=== PATIENT | female | born 1965 | race Caucasian/White ===

== ENCOUNTER 2024-04-15 13:02 | Outpatient (CLI) | payer BC, SELFPAY ==
--- NOTE | 2024-04-15 13:00 | MR_ITS ---
[address] [address] Phone:?[phone] Fax:?[phone] Referring Physician Information: Keenan Nash M.D. [address] [id number] Phone:?[phone] Fax:?[phone] Patient:?Ping Peralta Faheem.Julius.B:?1965 Sex:?Female Phone:?[phone] [facility] MRN:?[id number] Exam Date:?04/15/2024 EXAM: MRI of the RIGHT SHOULDER, without contrast CLINICAL: Female, 58 years old, with right shoulder pain since injury sustained during a fall while carrying books. INDICATION: Evaluate for rotator cuff tear or strain versus other shoulder internal derangement etiology. PRIOR SURGERY: None reported. PLAIN FILMS: 03/06/2024 radiographic series of the right shoulder. COMPARISONS: No prior MRIs available. TECHNICAL: Using a 1.5T MR scanner and a localizing shoulder surface coil: 3.0 mm?coronal obliques: PD, T2, STIR 3.0 mm?sagittal obliques: PD, T2 3.0 mm?axials: PD, T2 SEDATION: None. CONTRAST: None. IMPRESSION: 1. Broad-based greater than 50% thickness deep surface attenuation of the distal 2 cm of the entire supraspinatus tendon, slightly into the adjacent anterior infraspinatus tendon, with superimposed 10-15 mm AP dimension full-thickness supraspinatus tendinopathy and ill-defined irregular near full-thickness and more focal full-thickness tear of the distal insertional supraspinatus footprint. Minimal tendon retraction and mild muscle atrophy although the latter is relatively similar to other musculature of the shoulder. 2. Mild narrowing of acromiohumeral distance is likely predominantly secondary to slight proximal migration of the humeral head associated with rotator cuff attenuation. Relatively mild inferior degenerative hypertrophy of acromioclavicular joint also contributes some encroachment upon the subacromial space and underlying supraspinatus myotendinous junction 3. No biceps tendon pathology. 4. Expected mild glenohumeral chondromalacia/degenerative change predominantly involving the glenoid. FINDINGS: Glenohumeral joint: Effusion/cyst: Physiologic. Ganglion cyst: None. Articular cartilage: Humeral head: Intact. Glenoid: Expected chondral thinning of the central glenoid without convincing full-thickness defect or subjacent marrow edema Loose bodies: None demonstrable. Inferior glenohumeral ligament/axillary recess: Unremarkable. Labrum: Prominent appearing attenuation, perhaps some irregularity, of the anterior labrum although without convincing well-defined linear tear (axial images 12- 17). Posterior and superior labrum appear unremarkable. Bones: Proximal humerus: Slight cortical irregularity and slight subcortical bone marrow edema and minimal subchondral cyst of the anterior greater tuberosity as well as a separate area of mild to moderate marrow edema of the more posterior greater tuberosity underlie distal insertional rotator cuff tendinopathy/tear detailed below. The proximal humerus is otherwise intact. No humeral Hill-Sachs or reverse Hill-Sachs lesion. Glenoid: Intact. No osseous Bankart lesion. Coracoacromial arch: Acromion morphology: Pronounced type II acromion without defined subacromial spur/enthesophyte with slightly low-lying, although otherwise unremarkable- appearing, coracoacromial ligament contribute slight additional encroachment subacromial space beyond the acromion morphology (sagittal image 9). Os acromiale: None. Acromiohumeral space: Mildly narrowed anteriorly at a minimum of 4 mm associated with the above morphology but likely predominantly secondary to slight proximal migration of the humeral head associated with the rotator cuff tear/attenuation detailed below. Coracohumeral space: Within normal limits. Acromioclavicular joint: Joint: Mild degenerative hypertrophy of the acromioclavicular joint contributes mild encroachment upon the subacromial space where it abuts and mildly encroaches upon the contour of the underlying anterior supraspinatus myotendinous junction (sagittal T2 series 9, images 13-15). Ligaments: Intact coracoclavicular ligaments. Bursae: Subacromial-subdeltoid: Unremarkable. Subcoracoid: Unremarkable. Rotator cuff and muscles/tendons: Supraspinatus: There is broad-based rather marked deep surface attenuation/wear/tear of the distal 2 cm of the entire supraspinatus tendon. A superficial tendon layer remains intact over most of this area although there is superimposed approximately 10 towards 15 mm AP dimension area of abnormal irregular higher grade partial-thickness tearing and more localized full- thickness tear (coronal images 14-9; sagittal T2 series 9, images 10-4). Slight to mild retraction of some of the torn tendon fibers with mild decreased muscle bulk. Infraspinatus: Some tendinosis and mild attenuation extends into adjacent distal anterior margin of the infraspinatus tendon, without convincing full-thickness tear. The more mid to posterior infraspinatus tendon is intact. No tendon or myotendinous junction retraction. No muscle atrophy. Teres minor: Unremarkable. Subscapularis: Unremarkable. Deltoid: Unremarkable. Biceps tendon, long head: Intact without displacement. Axilla: None. [facility] Electronically signed on 04/16/2024 1:18:00 PM by Morales Gerard M.D.
== END 2024-04-15 13:03 | disposition home or self-care (01) ==
PROVIDERS: Visit Provider Orthopaedic Surgery Sports Medicine
DX: M25.511 Pain in right shoulder (principal); S46.011A Strain of muscle(s) and tendon(s) of the rotator cuff of right shoulder, initial encounter; M75.101 Unspecified rotator cuff tear or rupture of right shoulder, not specified as traumatic; M94.211 Chondromalacia, right shoulder
CPT/HCPCS: 73221

== ENCOUNTER 2024-06-01 06:16 | Day surgery (SDC) | payer BC, SELFPAY ==
[2024-06-01] VITALS (14 sets, daily range): BP systolic 103–128; BP diastolic 64–79; PULSE 52–67; RESP 14–16; TEMP 36.1–36.3; O2SAT 93–99; BMI 24.0
--- OUTSIDE RECORDS SUMMARY | 2024-06-01 06:19 | XMS_ITS | Clinical Summary ---
Author Organization [employer] [facility] Address [place], [place] [address] Care Team Providers Care Recreational Vehicle Repairer Name Role Phone River Alvarado MD Unavailable [phone] Kassie Velásquez MD Primary Care Provider [phone] Allergies Active Allergy Reactions Criticality Noted Date Comments Erythromycin Rash 10/01/2006 Tetracycline Rash 10/01/2006 Medications azelaic acid (FINACEA) 15 % topical gel Apply thin layer topically to affected area twice daily. 50 g 0 04/28/20 14 Active metroNIDAZOLE (METROCREAM) 0.75 % creamIndication s:Contact dermatitis and other eczema, due to unspecified cause Apply topically to affected area(s) 2 times daily. 45 g 2 10/02/19 15 Active medication order composerIndicat ions:Vaginal atrophy Estriol 0.5 mg / gm Use 2 gm in the vagina at bedtime twice weekly 30 g 10/13/19 21 Active nystatin-triamc inolone (MYTREX) ointmentIndicat ions:Vulvar irritation Apply topically to affected area(s) two times daily. 30 g 12/27/19 22 Active estradioL (ESTRACE) 0.01% (0.1 mg/g) vaginal creamIndication s:Vaginal itching,Vaginal irritation,Vagi nal atrophy,Genitou rinary symptoms,Postme nopausal atrophic vaginitis The regimen recommended by the grave cleaner is 2 to 4 g of cream intravaginally administered daily for one or two weeks, then gradually reduced to half the initial dose for a similar period. A maintenance dose of 1 g of cream, one to three times per week, may be used. 1 Each 5 01/31/20 24 Active fluconazole (DIFLUCAN) 150 mg tabletIndicatio ns:Vaginal itching TAKE 1 TABLET BY MOUTH. REPEAT IN 3 DAYS IF SYMPTOMS PERSIST 2 Tablet 1 01/31/20 24 Active clobetasol (TEMOVATE) 0.05 % ointmentIndicat ions:Lichen sclerosus Apply half a fingertip spread thinly to affected area nightly for 2 weeks, then 2-3 nights per week 45 g 3 02/18/20 24 Active Active Problems Problem Noted Date Diagnosed Date Lichen sclerosus et atrophicus 05/01/2024 Cataract 05/01/2024 Menopausal symptoms 08/14/2019 Overview (08/14/2019): 08/14/19: St HRT Tinnitus 05/20/2018 Bilateral retinal detachment 08/29/2016 ELBERT II (cervical intraepithelial neoplasia II) 0 07/25/2008 Overview (02/09/2024): 06/2008 [place]: ELBERT I, ECC ELBERT I, cannot exclude ELBERT 2 08/2008 [place]: ELBERT I, margins clear 01/2024 NIL/HPV negative Plan: HPV based testing in 3 years Resolved Problems Problem Noted Date Diagnosed Date Resolved Date Vaginal itching 01/31/2024 04/29/2024 Encounter for screening for malignant neoplasm of breast 01/31/2024 04/29/2024 Screening for cervical cancer 01/31/2024 02/09/2024 Vaginal atrophy 01/31/2024 05/01/2024 Vaginal irritation 01/31/2024 Perioral dermatitis 07/12/2014 04/30/19 25 Positive MIKI (antinuclear antibody) 01/12/2014 04/30/2024 Contact dermatitis and other eczema, due to unspecified cause 07/05/2011 04/29/2024 Mild dysplasia of cervix 10/05/200804/2024 Thyroid function test abnormal 08/19/2008 04/29/2024 Screening for thyroid disorder 06/29/2008 04/30/2024 Backache, unspecified 02/04/20072024 Encounters Date Type Department Care Team Description 05/29/2024 8:45 AM CALTRANS EQUIPMENT OPERATOR Office Visit [facility] [address] [place] [address] Bindu Shen MD Pre-Op Exam 05/29/2024 Travel 05/01/2024 Telephone [facility] [address] [place] [address] Kassie Velásquez MD Form 04/30/2024 3:25 PM CALTRANS EQUIPMENT OPERATOR Office Visit [facility] [address] [place] [address] Kassie Velásquez MD Preoperative Exam (Surgery with Dr Nikos Rosario for cataracts as [facility] on 05/04/24) 04/30/2024 Travel 04/29/2024 Travel 03/04/2024 Telephone [facility] [address] [place] [address] Kyle Gayle MD Appointment Request 03/04/2024 Nurse Triage [facility] [address] [facility] [address] [place] [id number] Ese Garduno MD Chest Injury from Last 3 Months Immunizations Name Administration Dates Next Due COVID-19 VACCINE SPIKEVAX (M ODERNA 50MCG/0.5ML) 12YO+ PFS 02/12/2024 COVID-19 vaccine (Pfizer-Bio NTech 30mcg/0.3mL) PF, MDV 08/15/2020,07/25/2020 INFLUENZA, IIV3 PF (AGE >= 6 MO) 02/12/2024 Influenza Virus, Unspecified 01/13/2020 Influenza, IIV4 02/10/2019,01/20/2018 Influenza, IIV4 (=>6mos) MDV 02/09/2021 Influenza, Injectable, Mdck, Quadrivalent, W/preservative 01/13/2020 Influenza,CCIIV4 PRESERV FREE 03/14/2023, 022 Tdap 12/26/2021,07/05/2011 Zoster (Shingrix-RZV, recombinant) 10/12/2020 Zoster, Unspecified Formulation 06/05/2018(Defer red: Patient Refused) Family History Medical History Relation Name Comments Other Brother 1 retinal tears Good Health Daughter 1 Good Health Daughter 2 Good Health Daughter 3 Arthritis Father RA and OA Diabetes Father type 2 Hyperlipidemia Father Psychiatric illness Maternal Aunt Heart Disease Maternal Grandfather Psychiatric illness Maternal Uncle GI Disease Mother chrones Other Mother glacoma Thyroid Disease Mother Psychiatric illness Paternal Aunt Heart Disease Paternal Grandmother Psychiatric illness Paternal Uncle Arthritis Sister RA and OA Other Sister retinal tears Thyroid Disease Sister Good Health Son Cancer-breast No Family History Cancer-ovarian No Family History Relation Name Status Comments Brother 1 Alive Brother 2 Alive Daughter 1 Alive Daughter 2 Alive Daughter 3 Alive Father Alive Maternal Aunt Maternal Grandfather Maternal Grandmother Maternal Uncle Mother Alive Paternal Aunt Paternal Grandfather Paternal Grandmother Paternal Uncle Sister Alive Son Alive Social History Tobacco Use Types Packs/Day Years Used Date Smoking Tobacco: Former Cigarettes Q uit: 04/29/2010 Smokeless Tobacco: Never Tobacco Cessation:Counseling Given: Yes Comments:occasional smoker Alcohol Use Standard Drinks/Week Comments Yes 5 (1 standard drink = 0.6 oz pur e alcohol) 3-10 drinks per week PHQ-2 Answer Date Recorded PHQ-2 TOTAL SCORE 2 02/18/2024 Social Connections Answer Date Recorded Do you often feel lonely or isolated from those around you? 0 01/31/2024 Financial Resource Strain Answer Date R ecorded Difficulty of Paying Living Expenses 3 01/31/2024 Difficulty of Paying Living Expenses Not on file 01/31/2024 Food Insecurity Answer Date Recorded Do you worry your food will run out before you are able to buy more? 1 01/31/2024 Transportation Needs Answer Date Record ed Does lack of transportation keep you from medica l appointments? 1 01/31/2024 Does lack of transportation keep you from work, meetings or getting things that you need? 1 01/31/2024 Housing Stability Answer Date Recorded What is your housing situation today? 1 01/31/2024 Utilities Answer Date Recorded Do you have trouble paying f or utilities (for example, heat, electricity, water, phone)? 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 on file Not on file Not on file Obstetrics History Para Term AB IAB SAB Ectopic Multiple Livin g Live Births 4 4 4 0 0 0 0 0 0 4 4 Date Outcome GA Total Labor Labor/2nd/3rd Weight Sex Type Anes PTL Luz A1 A5 Name Clin 1989 Term 42w 0d 7h 00m/ 4.28 kg (9 lb 7 oz) M Vag Living 1991 Term 37w 0d 7h 00m/ 3.63 kg (8 lb) F Vag Living 1994 Term 41w 0d 5h 00m/ 4.22 kg (9 lb 5 oz) F Vag Living 1996 Term 41w 0d 7h 00m/ 4.22 kg (9 lb 5 oz) F Vag Living Last Filed Vital Signs Vital Sign Reading Time Taken Comments Blood Pressure 108/62 05/29/2024 9:03 AM CALTRANS EQUIPMENT OPERATOR Pulse 68 05/29/2024 9:03 AM CALTRANS EQUIPMENT OPERATOR Temperature 36.9 C (98.4 F) 03/03/2016 9:12 AM CDT Respiratory Rate 16 04/30/2024 3:56 PM CALTRANS EQUIPMENT OPERATOR Oxygen Saturation 97% 05/29/2024 9:03 AM CALTRANS EQUIPMENT OPERATOR Inhaled Oxygen Concentration - - Weight 67.6 kg (149 lb 1.6 oz) 05/29/2024 9:03 A M CALTRANS EQUIPMENT OPERATOR Height 168.9 cm (5' 6.5) 04/30/2024 3:56 PM CALTRANS EQUIPMENT OPERATOR Body Mass Index 23.7 04/30/2024 3:56 PM CALTRANS EQUIPMENT OPERATOR Plan of Treatment Health Maintenance Due Date Last Done Comments HIV for age 15-65 09/24/1982 Hepatitis C screening for ag e 18-79 09/24/1985 Pneumococcal series for age 50+ (1 of 1 - PCV) 09/24/2017 Lipids for age 45-75 08/13/2018 08/13/2013, 06/08/2009, 05/03/2004 Zoster (shingles) series for age 50+ (2 of 2) 12/07/2020 10/12/2020 Mammogram for age 45-75 08/30/2021 08/31/19 21, 02/10/2019, 10/16/2017, Additional history exists Depression screening for age 12+ 02/17/2025 02/18/2024, 12/26/2021, 10/12/2020, Additional history exists BMI (ht and wt on same day) for age 18+ 04/30/2025 04/30/2024, 02/12/2024, 02/10/2024, Additional history exists Pap test for age 21-65 01/30/2027 , 10/12/2020, 10/12/2020, Additional history exists Colonoscopy through age 75 05/21/202805/21 (Completed outside of [facility]) Tetanus booster 12/27/2031 12/26/2021, 0311/2011, 06/08/2009 (Postponed) Tdap Completed 12/26/2021, 07/05/2011 COVID-19 vaccine series Completed 02/12/20, 03/12/2022, 02/14/2021, Additional history exists Influenza for age 50-64 Completed 02/12/20, 03/14/2023, 03/12/2022, Additional history exists Procedures Procedure Name Priority Date/Time Associated Diagnosis Comments CBC W PLT NO DIFF Routine 05/29/2024 9:1 9 AM CALTRANS EQUIPMENT OPERATOR Pre-op chest exam BASIC METABOLIC PANEL Routine 05/29/2024 9:19 AM CALTRANS EQUIPMENT OPERATOR Pre-op chest exam WILDLIFE PROTECTOR THIN PREP PAP AND HPV DNA - AGE 25 AND OVER ([facility]) Routine 01/31/2024 3:13 PM CDT Screening for cervical cancer XR MAMMO BILAT SCREENING Routine 08/30/2020 5:00 PM CDT Visit for screening mammogram LIPID PANEL W REFLEX MEASURED LDL Routine 08/13/2013 11:25 AM CDT Screening for lipoid disorders from Last 3 Months or Most Recently Relevant to Health Maintenance Results * (ABNORMAL) CBC W PLT NO DIFF (05/29/2024 9:19 AM CALTRANS EQUIPMENT OPERATOR) WHITE BLOOD CELL COUNT 3.4(L) 3.8 - 10.8 Thousand/u L [facility] RED BLOOD CELL COUNT 4.00 3.80 - 5.10 Million/uL [facility] HEMOGLOBIN 12.7 11.7 - 15.5 g/dL [facility] HEMATOCRIT 37.7 35.0 - 45.0 % [facility] MCV 94.3 80.0 - 100.0 fL [facility] MCH 31.8 27.0 - 33.0 pg [facility] MCHC 33.7 32.0 - 36.0 g/dL [facility] Comment: For adults, a slight decrease in the calculated MCHC value (in the range of 30 to 32 g/dL) is most likely not clinically significant; however, it should be interpreted with caution in correlation with other red cell parameters and the patient's clinical condition. RDW 11.7 11.0 - 15.0 % [facility] PLATELET COUNT 227 140 - 400 Thousand/u L [facility] MPV 10.2 7.5 - 12.5 fL [facility] Blood BLOOD SPECIMEN / Unknown 05/29/2024 9:19 AM CALTRANS EQUIPMENT OPERATOR 05/29/2024 9:20 AM CALTRANS EQUIPMENT OPERATOR Narrative [employer] [facility] - 05/30/2024 3:49 AM CALTRANS EQUIPMENT OPERATOR FASTING:YES FASTING: YES us Bindu Shen MD HEMATOLOGY Final Resu lt [employer] [facility] [address] [place] [address], [facility] [address] [place] [address] * (ABNORMAL) BASIC METABOLIC PANEL (05/29/2024 9:19 AM CALTRANS EQUIPMENT OPERATOR) [facility] GLUCOSE 84 65 - 99 mg/dL [facility] Comment: Fasting reference interval UREA NITROGEN (BUN) 8 7 - 25 mg/dL [facility] CREATININE 0.90 0.50 - 1.03 mg/dL [facility] EGFR 75 > OR = 60 mL/min/1. 73m2 [facility] BUN/CREATININE RATIO SEE NOTE: 6 - 22 (calc) [facility] Comment: Not Reported: BUN and Creatinine are within reference range. SODIUM 141 135 - 146 mmol/L [facility] POTASSIUM 4.3 3.5 - 5.3 mmol/L [facility] CHLORIDE 105 98 - 110 mmol/L [facility] CARBON DIOXIDE 31 20 - 32 mmol/L [facility] ELECTROLYTE BALANCE 5(L) 7 - 17 mmol/L (calc) [facility] CALCIUM 9.6 8.6 - 10.4 mg/dL [facility] Blood BLOOD SPECIMEN / Unknown 05/29/2024 9:19 AM CALTRANS EQUIPMENT OPERATOR 05/29/2024 9:20 AM CALTRANS EQUIPMENT OPERATOR Narrative [facility] - 05/30/2024 4:30 AM CALTRANS EQUIPMENT OPERATOR FASTING:YES FASTING: YES Bindu Sehn MD CHEMISTRY Final Resu lt [employer] [facility] [address] [place] [address], [facility] [address] * WILDLIFE PROTECTOR THIN PREP PAP AND HPV DNA - AGE 25 AND OVER ([facility]) (01/31/2024 3:13 PM CDT) CLINICAL INFORMATION [facility] Comment:None given LMP [facility] Comment:UNKNOWN PREV. PAP [facility] Comment:2020 PREV. BX [facility] Comment:YES SOURCE WILDLIFE PROTECTOR [facility] Comment:Cervix STATEMENT OF ADEQUACY [facility] Comment:SATISFACTORY FOR LIBERTAD LUATION INTERPRETATION/RESU LT [facility] Comment: Cytology Results: Negative for intraepithelial lesion or malignancy. Atrophic pattern; predominantly parabasal cells COMMENT [facility] Comment: This Pap test has been evaluated with computer assisted technology. SEMI AUTOMATIC SEWING MACHINE OPERATOR [facility] Comment: ESW, CT (ASCP) CT Screening location: [address] [address] THINPREP TIS PAP ALWAYS MESSAGE [facility] Comment: EXPLANATORY NOTE: The Pap is a screening test for cervical cancer. It is not a diagnostic test and is subject to false negative and false positive results. It is most reliable when a satisfactory sample, regularly obtained, is submitted with relevant clinical findings and history, and when the Pap result is evaluated along with historic and current clinical information. HPV HIGH RISK Not Detected NOT DETECTED [facility] Comment: Not Detected High Risk HPV types (16,18,31,33,35,39,45,51,52, 56,58,59,66,68) were not detected. Other HPV types which cause anogenital lesions may be present. The significance of the other types of HPV in malignant processes has not been established. Methodology: Real Time PCR Other (Other) 01/31/2024 3:1 3 PM CDT 02/01/2024 6:44 AM CDT Narrative [facility] - 02/05/2024 10:53 AM CDT SPLIT 01/31/2024 FROM [id number] Alina Mercado CNM PATHOLOGY/CYTOLOG Y Final Result [address] [address], [facility] [address] * XR MAMMO BILAT SCREENING (08/30/2020 5:00 PM CDT) Anatomical Region Laterality Modality BREASTS, Breast Left, Breast Right Bilateral Mammography Impressions 08/31/2020 2:56 PM CDT There is no radiographic evidence for malignancy. Recommend annual mammograms. MAMMOGRAM ASSESSMENT: ACR 1 Negative PATIENTS: You will also receive a letter with your examination results in an easy to read format. If you have questions about your results, please contact your referring provider. Narrative 08/31/2020 2:56 PM CDT XR MAMMO BILAT SCREENING [[id number]] CLINICAL HISTORY: This is an asymptomatic 54 y.o. patient. INDICATION FOR EXAM: Mammogram Screening. TECHNIQUE: CC & MLO views were obtained. This study was evaluated with the assistance of Computer-Aided Detection. COMPARISON FILM: Yes 02/10/19 10/16/17 FINDINGS: The breasts are heterogeneously dense, which may obscure small masses. There are no dominant masses, suspicious micro calcifications or areas of architectural distortion. Ese Garduno MD MAMMO Final Result * LIPID PANEL W REFLEX MEASURED LDL (08/13/2013 11:25 AM CDT) CHOLESTEROL,TOTAL 172 100 - 199 mg/dL 08/14/2013 8:15 AM CDT [facility] TRIGLYCERIDES 84 <150 mg/dL 08/14/2013 8:15 AM CDT [facility] HDL CHOLESTEROL 70 >40 mg/dL 4 8:15 AM CDT [facility] NON-HDL CHOLESTEROL 102 <145 mg/dl 08/14/2013 8:15 AM CDT [facility] CHOL/HDL RATIO 2.46 <4.50 08/14/2013 8:15 AM CDT [facility] LDL CHOLESTEROL 85 <=130 mg/dL 08/14/2013 8:15 AM CDT [facility] PATIENT STATUS FASTING 08/14/2013 8:15 AM CDT [facility] Blood specimen (specimen) BLOOD SPECIMEN / Unknown Venipuncture / Unknown 08/13/2013 11:25 AM CDT 08/13/2013 11:25 AM CDT Ese Garduno MD CHEMISTRY Final Result [facility] [address] [place] [address], [place] from Last 3 Months or Most Recently Relevant to Health Maintenance Insurance [place] Care Teams Recreational Vehicle Repairer Relationship Specialty Start Date End Date Kassie Velásquez MD [address] [place] [address] [place] [address] PCP - General Internal Medicine 04/30/24 River Alvarado MD [address] [facility] [address] [place] [address] Rheumatology Rheumatology 01/12/14
--- OUTSIDE RECORDS SUMMARY | 2024-06-01 06:19 | XMS_ITS | Continuity of Care Document ---
Author Organization [facility] Address [address] [address] [place] [address] Phone Care Team Providers Care Wheel Shop Supervisor Name Role Phone No Information Unavailable Unavailable Advance Directives Directive Yes / No Effective Date File Name No Information Encounters Encounter Description Practice Location Reason(s) For Visit Diagnoses Date Provider Providers Copied on Encounter [facility], [address] [address], [place], [place], [id number], [place] tel:[phone] No Information No Information Family History Family Member Type Diagnosis Age At Onset No Information Payers Payer name Insurance type Covered green party ID Authoriza tion(s) No Information Social History Type Description Quantity Date Captured Comments Sex Female Smoking Status No Information Chief Complaint And Reason For Visit No Information Reason For Referral Reason For Referral No Information History Of Present Illness Encounter Date Complaint History Of Prese nt Illness No Information Functional Status Date Functional Assessmen t No Information Instructions Date Instruction Additional Infor mation No Information Assessments Type Assessment Date No Information Patient Care Teams Name Effective Dates (start - stop) Status Members No Information
[2024-06-01] MEDS: SODIUM CHLORIDE 0.9 % (FLUSH) 10 ML SYRINGE IVF (07:00)
[2024-06-01] MEDS: fentaNYL 100 MCG/2 ML inj IVP (07:16)
[2024-06-01] MEDS: MIDAZOLAM HCL 1 MG/ML inj IVP (07:16)
--- NOTE | 2024-06-01 07:18 | W.PM.H&PU ---
History & Physical Update History & Physical Update H&P Reviewed and patient assessed: No changes noted
[2024-06-01] MEDS: 0.9 % SODIUM CHLORIDE 500 ML 500 ML 100 ML IV (07:33)
--- NOTE | 2024-06-01 07:35 | SUR.PREOP ---
TIME?OUT:?0716 PT/RN/MDA?VERIFICATION?OF?SURGICAL?SITE,?PROCEDURE,?AND?CONSENT OBTAINED?PRIOR?TO?INVASIVE?PROCEDURE.
[2024-06-01] MEDS: CEFAZOLIN 2 GM in 0.9 % SODIUM CHLORIDE Mini-bag 100 ML IVPB (07:45)
[2024-06-01] MEDS: EPINEPHrine 1 MG in SODIUM CHLORIDE IRRIG SOLUTION 3,000 ML 9003 MG IRRIGATION ×4 (08:10→09:22)
--- NOTE | 2024-06-01 09:24 | PM.ORPRC ---
Procedure Note Date of procedure: 06/01/24 Procedure: PREOPERATIVE DIAGNOSES: 1. Right shoulder rotator cuff tear - full-thickness supraspinatus 2. Right shoulder anterior labral tearing 3. Right shoulder subacromial impingement syndrome. POSTOPERATIVE DIAGNOSES: 1. Right shoulder rotator cuff tear - full-thickness supraspinatus; upper border subscapularis 2. Right shoulder anterior labral tearing 3. Right shoulder subacromial impingement syndrome. NAME OF OPERATION: 1. Right shoulder arthroscopic rotator cuff repair - upper border subscapularis and full-thickness supraspinatus crescent type tear 2. Right shoulder arthroscopic limited glenohumeral debridement 3. Right shoulder arthroscopic bursectomy, subacromial decompression/partial acromioplasty. SURGEON: Keenan Nash MD OLIVING MACHINE OPERATOR: Fritz Fulton PA-C. Of note, a skilled cable splicer assistant was critical for this case to aide in patient positioning, suture manipulation, arm positioning, instrument positioning, and closure. ANESTHESIA: General plus preoperative supraclavicular block. EBL: 25 mL IMPLANTS: Arthrex 4.75 mm BioComposite SwiveLock suture anchor (x2) Arthrex 5.5 mm BioComposite SwiveLock suture anchor (x2); COMPLICATIONS: None evident INDICATIONS: The patient is a pleasant, 58-year-old female who has experienced right shoulder pain that has been increasing in recent time. Physical exam and imaging were consistent with a rotator cuff tear. Given their findings, as well as the weakness and pain, and inadequate response to nonoperative management, recommendation was made for surgery. FINDINGS: Exam under anesthesia revealed stable shoulder with excellent range of motion. The diagnostic arthroscopy revealed healthy chondral surfaces of the glenohumeral joint. The Subscapularis tendon was torn from its upper border with mild-moderate retraction. The long head of the biceps tendon was intact with only mild/low-grade partial-thickness deep sided tearing. The superior rotator cuff tendon was found to be torn full-thickness in a crescent type tear with mild retraction to the superior humeral head. The labrum was torn in the anterior aspect in particular, to a lesser degree superior aspect. The biceps origin was otherwise strong and intact. No loose bodies were identified within the pouch or subscapularis recess. PROCEDURE: Following a thorough discussion of risks, benefits, and alternatives, consent was obtained and the right shoulder was marked. The patient was brought to the operating room and placed supine on the operating table. Induction of anesthesia was completed after preoperative supraclavicular block was administered in preop holding. Appropriate time out was performed identifying proper patient, site, and procedure. 2 g IV Ancef was administered within 1 hour of incision preoperatively. The right upper extremity was prepped and draped in the appropriate sterile fashion using ChloraPrep prep. This was after the patient was positioned in the beach chair with their head in neutral alignment and all bony prominences well padded. The shoulder was insufflated with 20mL of normal saline via an 18g spinal needle from a posterior approach. An 11 blade skin incision allowed a blunt trochar to be inserted and diagnostic arthroscopy to be performed with the findings as noted above. An anterior portal was established with an outside in technique. This allowed the probe to be inserted and confirm the diagnostic arthroscopic findings. The shaver was then inserted and allowed debridement of the anterior and superior labrum. Following this, the upper border subscapularis was repaired after debriding the lesser tuberosity with the shaver and [place] cautery. Subscapularis was captured in horizontal mattress fashion with a fiber tape suture. The tails were brought to a single anchor in the lesser tuberosity with excellent reapproximation of the subscap tendon and good excursion/tension. Thereafter, the subacromial space was entered. Here, a complete bursectomy and partial acromioplasty/subacromial decompression was performed with a combination of radiofrequency ablator, the shaver, and a 5.5 mm bone bur. Further inspection of the supraspinatus and infraspinatus rotator cuff was performed. This identified the tear as noted above. The margins of the tear were debrided, and the greater tuberosity was debrided with a combination of the apollo cautery, shaver, and bur on reverse setting. After gentle decortication, a speed bridge configuration with a medial selam was planned. 2 medial anchors were placed and the sutures were passed through the rotator cuff with a fiber link (4.75 mm BioComposite SwiveLock knotless suture anchors). The knotless suture tails were then retrieved, crossed, and cinched down for the medial selam purpose. A tail from each of the medial row anchor FiberTapes were then retrieved and brought to a lateral row anchor. Excellent reapproximation of the tissue to the greater tuberosity was achieved with broad footprint compression. A small dog ear in the anterior aspect was repaired with the eyelet sutures from the anterolateral anchor. The rotator cuff showed excellent reapproximation of the greater tuberosity with good security upon probing. Prior to anchor tractor trailer driver removal, the eyelet sutures were tugged on for each anchor and found that the anchor had excellent stability within the bone. The shoulder was placed through range of motion and found to be stable. The rotator cuff was re-probed and found to be stable. Instruments were removed. Excess fluid was drained, closure performed with 4-0 Monocryl and Steri-Strips. Dressings were applied. Sling was applied. The patient was awoken from anesthesia and transferred to the PACU in stable condition. A skilled cable splicer assistant was critical for this case to aid in patient positioning, limb positioning, skill to manipulate arthroscopic instruments and camera, suture management, patient safety, and closure. PLAN: 1. Elbow, forearm, wrist and digit range of motion as tolerated. 2. Encouraged ice. 3. Oxycodone for pain as needed. 4. Sling at all times except for ROM and showering. 5. Follow up with PA visit in 1-2 weeks for wound check. Initiate physical therapy following that visit for passive range of motion. Initiate active assisted range of motion at 6 weeks. May do pendulums now.
--- NOTE | 2024-06-01 09:44 | P.ANES_ITS ---
Anesthesia Charges Start Date/Time Anesthesia Start Date: 06/01/24 Anesthesia Start Time: 07:26 Stop Date/Time Anesthesia Stop Date: 06/01/24 Anesthesia Stop Time: 09:38 Coding CPT Codes CPT Codes: ANESTH SURGERY OF SHOULDER - 87818 ([id number]) P1 - NORMAL HEALTHY PATIENT, QK - SEO SPECIALIST 2-4 CNCRNT ANES PROC, QX - TEMPERING OVEN OPERATOR SVJackie W/ MED DIRECTION
--- NOTE | 2024-06-01 09:44 | P.NB_ITS ---
Nerve Block Nerve Block Time Seen by Provider: 07:20 Date Seen: 06/01/24 Type of block requested by surgeon for post-operative analgesia: supraclavicular Side: right Time out performed: Yes Verification of patient name: Yes Verification of date of : Yes Site marking: site marked Name of person performing procedure: Santiago Continuous monitoring Was continuous monitoring of O2 sat, B/P, extension division director, recorded every 15 minutes?: Yes Procedure Checklist: sterile prep, needles and gloves Ultrasound guided. Images saved: Yes Medications given in 5ml increments after negative aspiration: Ropivicaine %: 0.5 mL: 20 Needle gauge: 22 Precedex (mcg): 25 Patient tolerated procedure well: Yes Block Charges Block Charge (with Pro Fee): Brachial Plexus Use of Ultrasound Machine for Block: Yes- US Guidance/pain block
--- NOTE | 2024-06-01 09:44 | P.ANES_ITS ---
Anesthesia Charges Start Date/Time Anesthesia Start Date: 06/01/24 Anesthesia Start Time: 07:26 Stop Date/Time Anesthesia Stop Date: 06/01/24 Anesthesia Stop Time: 09:38 Coding CPT Codes CPT Codes: ANESTH SURGERY OF SHOULDER - 02197 ([id number]) P1 - NORMAL HEALTHY PATIENT, QK - GANG BORE OPERATOR 2-4 CNCRNT ANES PROC, QX - SENIOR COST ACCOUNTANT SVJackie W/ MED DIRECTION
--- NOTE | 2024-06-01 09:44 | W.ANESCHARGE ---
Anesthesia Charges Start Date/Time Anesthesia Start Date: 06/01/24 Anesthesia Start Time: 07:26 Stop Date/Time Anesthesia Stop Date: 06/01/24 Anesthesia Stop Time: 09:38 Coding CPT Codes CPT Codes: ANESTH SURGERY OF SHOULDER - 98565 ([id number]) P1 - NORMAL HEALTHY PATIENT, QK - MOP WORKER 2-4 CNCRNT ANES PROC, QX - WEAVER HAND LOOM SVJackie W/ MED DIRECTION
--- NOTE | 2024-06-01 09:44 | W.ANESCHARGE ---
Anesthesia Charges Start Date/Time Anesthesia Start Date: 06/01/24 Anesthesia Start Time: 07:26 Stop Date/Time Anesthesia Stop Date: 06/01/24 Anesthesia Stop Time: 09:38 Coding CPT Codes CPT Codes: ANESTH SURGERY OF SHOULDER - 13742 ([id number]) P1 - NORMAL HEALTHY PATIENT, QK - PRECISION THREAD GRINDER OPERATOR 2-4 CNCRNT ANES PROC, QX - PMO LEAD SVJackie W/ MED DIRECTION
--- NOTE | 2024-06-01 10:06 | SUR.PHASEI ---
patient met discharge criteria per anesthesia
== END 2024-06-01 13:01 | disposition home or self-care (01) ==
LOC: OR 06:17
PROVIDERS: PCP Internal Medicine; Visit Provider Orthopaedic Surgery Sports Medicine
PROC: (CPT 29805; principal; 2024-06-01 07:30)
DX: S46.011A Strain of muscle(s) and tendon(s) of the rotator cuff of right shoulder, initial encounter (principal); S43.431A Superior glenoid labrum lesion of right shoulder, initial encounter; M75.41 Impingement syndrome of right shoulder; G89.18 Other acute postprocedural pain
CPT/HCPCS: 29827; 29826; 29822; 01630; 64415; 76942; C1713; J0171; J0330; J0690; J1100; J1630; J2250; J2371; J2405; J2704; J2795; J3010; J7030; L3670

== ENCOUNTER 2024-08-26 08:15 | Outpatient (RCR) | payer BC, SELFPAY | END 2024-12-24 23:59 | disposition home or self-care (01) | PROVIDERS: Visit Provider Orthopaedic Surgery Sports Medicine | DX: Z48.89 Encounter for other specified surgical aftercare (principal); Z51.89 Encounter for other specified aftercare | CPT/HCPCS: 97110; 97140; 97161 ==